=== PATIENT | male | born 1985 | race Native Hawaiian/Other Pacific Islander ===

== ENCOUNTER 2019-11-13 16:41 | Emergency (ER) | payer BC ==
[~2019-11-13] VITALS: Ht 177.8 cm; Wt 64.0 kg
[2019-11-13 18:41] VITALS: BP 120/80; TEMP 97.6
== END 2019-11-13 18:44 | disposition home or self-care (01) ==
LOC: ED 16:41
DX: S20.212A Contusion of left front wall of thorax, initial encounter (principal)
CPT/HCPCS: 99283